=== PATIENT | male | born 1965 | race Two or more races ===

== ENCOUNTER 2019-09-20 13:13 | Emergency (ER) | payer OTHER ==
[~2019-09-20] VITALS: Ht 182.9 cm; Wt 88.0 kg
--- NOTE | 2019-09-20 13:16 | NUR ---
PT AMBULATORY TO ER BED 04 C/O L BUTTOCK AREA PAIN AND SWELLING X 4 DAYS. PT GOWNED. VSS. AWAITING MD VILLANUEVA.
[2019-09-20] MEDS ORDERED: LIDOCAINE 1% INJ 50 ML MDV IJ ONE (14:06)
--- NOTE | 2019-09-20 14:07 | NUR ---
DR PAZ AT BEDSIDE FOR EVAL.
[2019-09-20] MEDS ORDERED: HYDROCODONE/APAP 5/325MG 1 EACH TABLET ONE (16:05)
[2019-09-20] MEDS: HYDROCODONE/APAP 5/325MG 1 EACH TABLET PO ONE (16:10)
--- NOTE | 2019-09-20 16:10 | NUR ---
INCISION AND DRAINAGE DONE. NORCO 5/325 GIVEN PO PER ERMD VERBAL ORDER.
--- NOTE | 2019-09-20 17:30 | NUR ---
PROVIDED W./ WOUND CARE. PROVIDED W/ ACI.PT D/C HOME IN STABLE CONDITION.
[2019-09-20 17:31] VITALS: BP 121/74
== END 2019-09-20 17:31 | disposition home or self-care (01) ==
LOC: ER 13:20
DX: K61.1 Rectal abscess (principal); R00.0 Tachycardia, unspecified; Z88.0 Allergy status to penicillin; Z88.1 Allergy status to other antibiotic agents; Z88.8 Allergy status to other drugs, medicaments and biological substances
CPT/HCPCS: 10060; 76882; 99284; A6403; A6407; J3490

== ENCOUNTER 2019-09-22 15:12 | Emergency (ER) | payer OTHER ==
[~2019-09-22] VITALS: Ht 182.9 cm; Wt 89.4 kg
[2019-09-22 15:26] VITALS: BP 125/81
== END 2019-09-22 16:05 | disposition home or self-care (01) ==
LOC: ER 15:12
DX: K61.1 Rectal abscess (principal); Z88.0 Allergy status to penicillin; Z88.1 Allergy status to other antibiotic agents
CPT/HCPCS: 99282; A6403